=== PATIENT | female | born 1985 | race Caucasian/White ===

== ENCOUNTER 2022-10-28 20:13 | Emergency (ER) | payer OTHER ==
[2022-10-28 20:20] VITALS: BP 136/83; PULSE 85; RESP 17; TEMP 98.3; BMI 31.7
[2022-10-28] MEDS ORDERED: ACETAMINOPHEN 500 MG TABLET (FP) PO ONE (22:38)
[2022-10-28] MEDS ORDERED: ACETAMINOPHEN 325 MG TABLET (FP) ONE (22:45)
== END 2022-10-29 01:05 | disposition home or self-care (01) ==
LOC: JER 20:13 → JERFT 20:13 → JER 10-29 01:05
DX: S20.211A Contusion of right front wall of thorax, initial encounter (principal); V43.52XA Car driver injured in collision with other type car in traffic accident, initial encounter
CPT/HCPCS: 71046-TC-FY; 99283-25